=== PATIENT | female | born 1960 | race Caucasian/White ===

== ENCOUNTER 2018-06-20 07:16 | Outpatient (CLI) | payer OTHER, SELFPAY ==
[2018-06-20 08:06] LABS: Cholesterol 244 mg/dL (50-200); HDL Cholesterol 40 mg/dL (40-60); LDL CHOLESTEROL 142 mg/dL (<100); Triglyceride 321 mg/dL (30-150)
== END 2018-06-20 07:36 ==
PROVIDERS: PCP Nurse Practitioner; Visit Provider Nurse Practitioner
DX: E78.5 Hyperlipidemia, unspecified (principal); E78.1 Pure hyperglyceridemia
CPT/HCPCS: 36415; 80061; 83721

== ENCOUNTER 2018-07-13 15:03 | Outpatient (CLI) | payer OTHER, SELFPAY ==
--- NOTE | 2018-07-13 12:01 | DI.RAD_ITS ---
SYMPTOMS/DIAGNOSIS: PAIN SWELLING, S/P TWISTING, M25.562, M25.462 LEFT KNEE: The joint spaces are well maintained. No fracture or joint effusion is seen. IMPRESSION: Negative left knee.
== END 2018-07-13 15:23 ==
PROVIDERS: PCP Nurse Practitioner; Visit Provider Nurse Practitioner Family
DX: M25.562 Pain in left knee (principal); M25.462 Effusion, left knee
CPT/HCPCS: 73564

== ENCOUNTER 2018-07-19 00:41 | Outpatient (CLI) | payer OTHER, SELFPAY ==
--- NOTE | 2018-07-19 07:30 | DI.MAMMO_ITS ---
SYMPTOM/DIAGNOSIS: SCREENING, Z12.31 MAMMOGRAMS: Mammograms were interpreted according to the usual protocol including computer analysis with CAD system, tomosynthesis and C view imaging. Comparison with prior examinations. Breast density B. No suspicious masses or microcalcifications are seen. There is no definite evidence of malignancy. IMPRESSION: Negative mammogram. Routine screening is recommended. Category I. MQSA ASSESSMENT OF FINDINGS: Negative. Category 1. Patient will receive a letter notifying them of these results. BI-RADS category B. There are scattered areas of fibroglandular density.
== END 2018-07-19 01:01 ==
PROVIDERS: PCP Nurse Practitioner; Visit Provider Nurse Practitioner
DX: Z12.31 Encounter for screening mammogram for malignant neoplasm of breast (principal)
CPT/HCPCS: 77063; 77067

== ENCOUNTER 2018-10-27 08:01 | Outpatient (REF) | payer OTHER, SELFPAY ==
[2018-10-28 11:34] LABS: Campylobacter PCR SEE COMMENTS; Salmonella PCR SEE COMMENTS; Shiga Toxin PCR SEE COMMENTS; Shigella/Enteroinvasive Ecoli SEE COMMENTS
== END 2018-10-27 08:21 ==
LOC: LBN 08:01
PROVIDERS: PCP Nurse Practitioner; Visit Provider Nurse Practitioner
DX: K52.9 Noninfective gastroenteritis and colitis, unspecified (principal)
CPT/HCPCS: 87505; 83630; 87177; 87324

== ENCOUNTER 2019-05-09 07:50 | Outpatient (CLI) | payer OTHER, SELFPAY ==
[2019-05-09 08:38] LABS: Absolute Basophil Count 0.04 k/cumm (0.0-0.2); Absolute Eosinophil Count 0.19 k/cumm (0.0-0.7); Absolute Lymphocyte Count 1.26 k/cumm (1.2-3.4); Absolute Neutrophil Count 2.25 k/cumm (1.2-6.7); Eosinophils % 4.6; HCT 41.8 % (36.0-46.0); HGB 13.9 g/dL (12.0-15.5); Lymphocytes % 30.4; Mean Corp. HGB Concentration 33.3 g/dL (32.0-36.0); Mean Corpuscular Hemoglobin 28.5 pg (27.0-33.0); Mean Corpuscular Volume 85.7 fL (80-95); Mean Platelet Volume 10.2 fL (8.0-11.0); Monocytes % 9.7; Neutrophils % 54.3; Platelet Count 274 x1000/uL (130-400); RBC 4.88 m/cumm (4.00-5.20); RBC Distribution Width 13.1 % (11.7-14.6); White Blood Cell Count 4.14 k/cumm (4.4-10.8)
[2019-05-09 10:45] LABS: ALT 46 U/L (14-59); AST 21 U/L (15-37); Albumin 3.9 g/dL (3.4-5.0); Alkaline Phosphatase 72 U/L (46-116); Anion Gap 11.2 mmol/L (3-11); BUN 21 mg/dL (7-18); Bilirubin, Total 0.4 mg/dL (0.2-1.0); CO2 26.8 mmol/L (21.0-32.0); CREATININE 1.04 mg/dL (0.55-1.02); Calcium 9.5 mg/dL (8.5-10.1); Chloride 101 mmol/L (98-107); Cholesterol 263 mg/dL (50-200); Estimated GFR 53.87 (mL/min/1.73m2); Ferritin 53 ng/mL (8-388); Glucose 151 mg/dL (70-100); HDL Cholesterol 34 mg/dL (40-60); Potassium 4.6 mmol/L (3.5-5.1); Sodium 139 mmol/L (136-145); Total Protein 7.4 g/dL (6.4-8.2); Triglyceride 401 mg/dL (30-150); Vitamin B12 583 pg/mL (193-986)
[2019-05-09 11:02] LABS: LDL CHOLESTEROL 138 mg/dL (<100)
[2019-05-09 11:21] LABS: C-Reactive Protein 0.07 mg/dL (0.0-0.3)
[2019-05-10 11:26] LABS: IgA 133 mg/dL (85-499); Interpretation SEE COMMENTS; Tissue Transglutaminase IgA <1.2 U/mL (<4.0)
[2019-05-11 06:15] LABS: Vitamin D 25 Total 33.8 ng/ml (30-100)
== END 2019-05-09 08:10 ==
PROVIDERS: PCP Nurse Practitioner; Visit Provider Internal Medicine Sleep Medicine
DX: E78.5 Hyperlipidemia, unspecified (principal); E55.9 Vitamin D deficiency, unspecified; K58.0 Irritable bowel syndrome with diarrhea; R53.83 Other fatigue; M25.50 Pain in unspecified joint
CPT/HCPCS: 36415; 80053; 80061; 82306; 82784; 83516; 83721; 85027; 82607; 82728; 85025; 86140

== ENCOUNTER 2019-12-29 03:53 | Outpatient (CLI) | payer OTHER, SELFPAY ==
[2019-12-29 09:55] LABS: Hemoglobin A1C 5.8 % (3.8-5.6)
[2019-12-29 12:29] LABS: ALT 31 U/L (14-59); AST 18 U/L (15-37); Albumin 4.3 g/dL (3.4-5.0); Alkaline Phosphatase 69 U/L (46-116); Anion Gap 12.1 mmol/L (3-11); BUN 26 mg/dL (7-18); Bilirubin, Total 0.4 mg/dL (0.2-1.0); CO2 24.9 mmol/L (21.0-32.0); CREATININE 0.92 mg/dL (0.55-1.02); Calcium 9.5 mg/dL (8.5-10.1); Calculated LDL 172 mg/dL (<100); Chloride 103 mmol/L (98-107); Cholesterol 250 mg/dL (<200); Glucose 99 mg/dL (74-106); HDL Cholesterol 42 mg/dL (40-60); Potassium 4.2 mmol/L (3.5-5.1); Sodium 140 mmol/L (136-145); Total Protein 7.6 g/dL (6.4-8.2); Triglyceride 182 mg/dL (<150)
== END 2019-12-29 04:13 ==
PROVIDERS: PCP Nurse Practitioner; Visit Provider Nurse Practitioner
DX: R73.03 Prediabetes (principal); E78.5 Hyperlipidemia, unspecified
CPT/HCPCS: 36415; 80053; 80061; 83036

== ENCOUNTER 2020-05-14 03:26 | Outpatient (CLI) | payer OTHER, SELFPAY ==
[2020-05-14 09:08] LABS: Calculated LDL 154 mg/dL (<100); Cholesterol 269 mg/dL (<200); HDL Cholesterol 42 mg/dL (40-60); Triglyceride 369 mg/dL (<150)
== END 2020-05-14 03:46 ==
PROVIDERS: PCP Student in an Organized Health Care Education/Training Program; Visit Provider Nurse Practitioner
DX: E78.5 Hyperlipidemia, unspecified (principal)
CPT/HCPCS: 36415; 80061

== ENCOUNTER 2020-07-01 02:51 | Outpatient (REF) | payer OTHER, SELFPAY ==
[2020-07-01 19:55] LABS: COVID-19 RT-PCR UVMMC Result Negative (Negative)
== END 2020-07-01 03:11 ==
LOC: LBO 02:51
PROVIDERS: PCP Student in an Organized Health Care Education/Training Program; Visit Provider Nurse Practitioner Family
DX: Z11.59 Encounter for screening for other viral diseases (principal)
CPT/HCPCS: U0003

== ENCOUNTER 2020-07-24 04:47 | Outpatient (CLI) | payer OTHER, SELFPAY ==
[2020-07-24 10:10] LABS: ALT 32 U/L (14-59); AST 16 U/L (15-37); Albumin 4.2 g/dL (3.4-5.0); Alkaline Phosphatase 71 U/L (46-116); Anion Gap 10.7 mmol/L (3-11); BUN 21 mg/dL (7-18); Bilirubin, Total 0.6 mg/dL (0.2-1.0); CO2 27.3 mmol/L (21.0-32.0); CREATININE 1.01 mg/dL (0.55-1.02); Calcium 9.7 mg/dL (8.5-10.1); Chloride 102 mmol/L (98-107); Estimated GFR 55.54 (mL/min/1.73m2); Glucose 114 mg/dL (74-106); Potassium 4.6 mmol/L (3.5-5.1); Sodium 140 mmol/L (136-145); Total Protein 7.7 g/dL (6.4-8.2)
== END 2020-07-24 05:07 ==
PROVIDERS: PCP Student in an Organized Health Care Education/Training Program; Visit Provider Student in an Organized Health Care Education/Training Program
DX: E78.5 Hyperlipidemia, unspecified (principal); E86.0 Dehydration; R73.03 Prediabetes; K58.0 Irritable bowel syndrome with diarrhea
CPT/HCPCS: 36415; 80053; 83036

== ENCOUNTER 2020-10-21 10:13 | Outpatient (REF) | payer OTHER, SELFPAY ==
--- NOTE | 2020-10-21 09:30 | PAPFT_PTH ---
PATIENT: Keira Montilla LOC: [facility] U#:[id number] AGE/SX: 60/F ROOM: RE10/21/[address]: CATHERINE Sanchez : 1960 BED: DIS: 10/21/2020 SPEC #: [id number] RECD: 10/21/20 12:48 STATUS: RUTHYChel REQ #: [id number] PALOMA: 10/21/20 09:[address]: Veronique Eugene DEPT: [facility] Cytology RECD BY: Ana Paula Mattson ENTERED: 10/21/20 12:49 SP TYPE: PAPFT OTHR DR: Viri Woodward, Tissues: 1 - CX/ENDOCX FOR PAP SMEARS Procedures: PAP THIN PREP/UVM Screening HPV DNA PROBE Comments: [id number]
== END 2020-10-21 10:14 | disposition home or self-care (01) ==
LOC: LBN 10:13
PROVIDERS: PCP Student in an Organized Health Care Education/Training Program; Visit Provider Nurse Practitioner Family
DX: Z12.4 Encounter for screening for malignant neoplasm of cervix (principal); Z11.51 Encounter for screening for human papillomavirus (HPV)
CPT/HCPCS: 88142; 87624

== ENCOUNTER 2020-10-29 01:11 | Outpatient (CLI) | payer OTHER, SELFPAY ==
--- NOTE | 2020-10-29 07:30 | DI.MAMMO_ITS ---
EXAM: MG MAMMO SCREENING CLINICAL HISTORY: screening TECHNIQUE: Mammograms were interpreted according to the usual protocol including computer analysis w [employer] CAD system, tomosynthesis and C-view imaging. COMPARISON: FINDINGS: The breasts are of moderate density with fairly symmetrical distribution of fibroglandular tissue. N o dominant mass or clumped microcalcification is identified in either breast. The current examinatio n is compared with previous examinations including July 2018 and there has been no gross interval change in appearance in comparison with the prior studies. IMPRESSION: No specific evidence of malignancy at this time. Routine screening examinations are suggested at yea rly intervals in this age group according to the ACS ACR guidelines. BI-RADS Category 1 - Negative Breast Density - Category B - Scattered areas of fibroglandular density
== END 2020-10-29 01:31 ==
PROVIDERS: PCP Student in an Organized Health Care Education/Training Program; Visit Provider Nurse Practitioner Family
DX: Z12.31 Encounter for screening mammogram for malignant neoplasm of breast (principal)
CPT/HCPCS: 77063; 77067

== ENCOUNTER 2021-06-13 09:49 | Outpatient (CLI) | payer OTHER, SELFPAY ==
[2021-06-14 02:11] LABS: COVID-19 RT-PCR UVMMC Result Negative (Negative)
== END 2021-06-13 09:50 | disposition home or self-care (01) ==
LOC: LBO 09:49
PROVIDERS: PCP Student in an Organized Health Care Education/Training Program; Visit Provider Nurse Practitioner Family
DX: Z20.822 Contact with and (suspected) exposure to COVID-19 (principal)
CPT/HCPCS: U0003

== ENCOUNTER 2021-06-27 03:00 | Outpatient (CLI) | payer OTHER, SELFPAY ==
[2021-06-28 01:37] LABS: COVID-19 RT-PCR UVMMC Result Negative (Negative)
== END 2021-06-27 03:01 | disposition home or self-care (01) ==
PROVIDERS: PCP Student in an Organized Health Care Education/Training Program; Visit Provider Nurse Practitioner Family
DX: Z20.822 Contact with and (suspected) exposure to COVID-19 (principal)
CPT/HCPCS: U0003

== ENCOUNTER 2021-09-25 03:52 | Outpatient (CLI) | payer OTHER, SELFPAY ==
[2021-09-25 09:07] LABS: Iron 41 ug/dL (50-170); Total Iron Binding Capacity 330 ug/dL (250-450); Transferrin Sat 12 % (15-50)
[2021-09-25 09:30] LABS: BUN 22 mg/dL (7-18); CREATININE 0.9 mg/dL (0.55-1.02); Calcium 8.8 mg/dL (8.5-10.1); Calculated LDL 141 mg/dL (<100); Chloride 103 mmol/L (98-107); Cholesterol 219 mg/dL (<200); Ferritin 123 ng/mL (8-252); Glucose 136 mg/dL (74-106); HDL Cholesterol 37 mg/dL (40-60); Potassium 4.7 mmol/L (3.5-5.1); Sodium 139 mmol/L (136-145); TSH (W/Ref FT4) 1.39 uIU/mL (0.36-3.74); Triglyceride 208 mg/dL (<150); Vitamin B12 456 pg/mL (193-986); Vitamin D 25 Total 29.3 ng/mL (30-100)
== END 2021-09-25 03:53 | disposition home or self-care (01) ==
LOC: LBO 03:52
PROVIDERS: PCP Student in an Organized Health Care Education/Training Program; Visit Provider Student in an Organized Health Care Education/Training Program
DX: G25.81 Restless legs syndrome (principal); K58.0 Irritable bowel syndrome with diarrhea; K90.9 Intestinal malabsorption, unspecified; R73.03 Prediabetes; Z91.89 Other specified personal risk factors, not elsewhere classified; G62.9 Polyneuropathy, unspecified; K52.831 Collagenous colitis; Z13.220 Encounter for screening for lipoid disorders; R53.83 Other fatigue
CPT/HCPCS: 36415; 80048; 80061; 82306; 82607; 82728; 82746; 83540; 83550; 84443

== ENCOUNTER 2021-10-17 02:51 | Outpatient (CLI) | payer OTHER, SELFPAY ==
[2021-10-17 15:48] LABS: HCT 40.5 % (36.0-46.0); HGB 13.3 g/dL (11.2-15.7); MCH 28.9 pg (27.0-33.0); MCHC 32.8 % (32.0-36.0); MPV 10.2 fL (8.0-11.0); Platelet Count 219 10^3/uL (130-400); RDW 12.7 % (11.7-14.6); RDW-SD 41.2 fL; WBC 6.37 10^3/uL (4.4-10.8)
[2021-10-17 16:51] LABS: Total Iron Binding Capacity 334 ug/dL (250-450)
== END 2021-10-17 02:52 | disposition home or self-care (01) ==
LOC: LBO 02:51
PROVIDERS: PCP Student in an Organized Health Care Education/Training Program; Visit Provider Student in an Organized Health Care Education/Training Program
DX: G62.9 Polyneuropathy, unspecified (principal); K90.9 Intestinal malabsorption, unspecified; G25.81 Restless legs syndrome; G47.33 Obstructive sleep apnea (adult) (pediatric); R53.83 Other fatigue
CPT/HCPCS: 36415; 85027; 83550

== ENCOUNTER 2021-11-04 04:40 | Outpatient (RCR) | payer OTHER, SELFPAY ==
[2021-10-28] MEDS: IRON SUCROSE COMPLEX 200 MG in Normal Saline 100 ML 440 MG IVPB (08:19)
[2021-10-28] MEDS: Normal Saline Flush 10 ML SYR IVP (08:20)
[2021-11-04] MEDS: Normal Saline Flush 10 ML SYR IVP (08:31)
[2021-11-04] MEDS: IRON SUCROSE COMPLEX 200 MG in Normal Saline 100 ML 440 MG IVPB (08:31)
== END 2021-11-08 23:59 | disposition home or self-care (01) ==
LOC: INF 04:40
PROVIDERS: PCP Student in an Organized Health Care Education/Training Program; Visit Provider Student in an Organized Health Care Education/Training Program
DX: G25.81 Restless legs syndrome (principal)
CPT/HCPCS: 96365; J1756

== ENCOUNTER 2021-11-11 01:33 | Outpatient (RCR) | payer OTHER, SELFPAY ==
[2021-11-11] MEDS: IRON SUCROSE COMPLEX 200 MG in Normal Saline 100 ML 440 MG IVPB (08:25)
[2021-11-11] MEDS: Normal Saline Flush 10 ML SYR IVP (08:59)
== END 2021-12-09 23:59 | disposition home or self-care (01) ==
LOC: INF 01:33
PROVIDERS: PCP Student in an Organized Health Care Education/Training Program; Visit Provider Student in an Organized Health Care Education/Training Program
DX: G25.81 Restless legs syndrome (principal); E61.1 Iron deficiency; R53.83 Other fatigue
CPT/HCPCS: 96365; J1756

== ENCOUNTER → 2021-12-17 08:32 | Outpatient (CLI) | payer OTHER, SELFPAY ==
--- NOTE | 2021-12-17 08:00 | DI.MAMMO_ITS ---
Exam(s) MAMMO SCREENING EXAM: MAMMO SCREENING CLINICAL HISTORY: screening. TECHNIQUE: Bilateral full field digital CC and MLO mammographic images were obtained with 3D tomosyn thesis and utilizing computer aided detection (CAD). COMPARISON: Prior mammograms were reviewed, the most recent being October 2020. FINDINGS: There has been no significant change in the appearance and distribution of the fibroglandular tissue. There are no new spiculated masses nor malignant appearing microcalcification groups. There is no significant architectural distortion nor skin thickening-retraction. IMPRESSION: No radiographic evidence of malignancy. BI-RADS Category 1 - Negative Breast Density - Category B - Scattered areas of fibroglandular density Breast density Category C or D implies that the patient has dense breast tissue. Dense breast tissue can make it harder to find cancer on a mammogram. Dense breast tissue is also associated with an incr eased risk of breast cancer. This information about the result of the mammogram report was provided to the patient to raise their awareness. Use this report when you speak with the patient about their risks for breast cancer, which includes their family history. At that time, you may recommend additional screening tests (Ultrasoun d or MRI) as these tests may add significant information. A negative radiographic report should not delay biopsy if a dominant or clinically suspicious mass is present. Up to ten percent of cancers are not identified on mammography. A negative report may reinforce clinical impression. Adenosis and dense breasts may obscure an underlying neoplasm. False positive reports average 6 to 10%. Patient will receive a letter notifying them of these results.
== END ==
PROVIDERS: PCP Student in an Organized Health Care Education/Training Program; Visit Provider Nurse Practitioner Family
DX: Z12.31 Encounter for screening mammogram for malignant neoplasm of breast (principal)
CPT/HCPCS: 77063; 77067

== ENCOUNTER 2021-12-18 02:13 | Outpatient (CLI) | payer OTHER, SELFPAY ==
[2021-12-18 11:50] LABS: HCT 42.8 % (36.0-46.0); HGB 14.3 g/dL (11.2-15.7); MCH 29.2 pg (27.0-33.0); MCHC 33.4 % (32.0-36.0); MCV 87 fL (80-95); MPV 10.3 fL (8.0-11.0); Platelet Count 210 10^3/uL (130-400); RDW 12.4 % (11.7-14.6); RDW-SD 39.8 fL; WBC 5.14 10^3/uL (4.4-10.8)
[2021-12-18 12:41] LABS: Iron 52 ug/dL (50-170); Total Iron Binding Capacity 344 ug/dL (250-450); Transferrin Sat 15 % (15-50)
[2021-12-18 12:45] LABS: Ferritin 300 ng/mL (8-252)
== END 2021-12-18 02:14 | disposition home or self-care (01) ==
LOC: LBO 02:13
PROVIDERS: PCP Student in an Organized Health Care Education/Training Program; Visit Provider Student in an Organized Health Care Education/Training Program
DX: E61.1 Iron deficiency (principal); G25.81 Restless legs syndrome
CPT/HCPCS: 36415; 85027; 82728; 83540; 83550

== ENCOUNTER 2022-06-23 02:57 | Outpatient (CLI) | payer OTHER, SELFPAY ==
[2022-06-23 08:22] LABS: Iron 86 ug/dL (50-170); Total Iron Binding Capacity 329 ug/dL (250-450); Transferrin Sat 26 % (15-50)
== END 2022-06-23 02:58 | disposition home or self-care (01) ==
PROVIDERS: PCP Student in an Organized Health Care Education/Training Program; Visit Provider Student in an Organized Health Care Education/Training Program
DX: E61.1 Iron deficiency (principal); G25.81 Restless legs syndrome
CPT/HCPCS: 36415; 83540; 83550

== ENCOUNTER 2022-06-26 11:23 | Outpatient (CLI) | payer OTHER, SELFPAY ==
--- NOTE | 2022-06-26 11:15 | RT.EKG_ITS ---
APPROVED REPORT Exam: Resting ECG Reason for Exam: palpitations Patient Location: O HR:67 bpm ECG Measurements Heart Rate 67 AXIS DE 189 P 9 QRSd 104 QRS 43 QT 410 T 57 QTc 433 Conclusion Sinus rhythm...normal P axis, V-rate 50- [address] elevation, inferior leads...ST >0.06mV, II III aVF
== END 2022-06-26 11:24 | disposition home or self-care (01) ==
LOC: DI.KIM 11:24
PROVIDERS: PCP Student in an Organized Health Care Education/Training Program; Visit Provider Student in an Organized Health Care Education/Training Program
DX: R00.2 Palpitations (principal)
CPT/HCPCS: 93010

== ENCOUNTER 2022-07-14 08:53 | Outpatient (CLI) | payer OTHER, SELFPAY | END 2022-07-14 08:54 | disposition home or self-care (01) | LOC: CARDOPNVT 08:53 | PROVIDERS: PCP Student in an Organized Health Care Education/Training Program; Visit Provider Student in an Organized Health Care Education/Training Program | DX: R00.2 Palpitations (principal) | CPT/HCPCS: 93246 ==

== ENCOUNTER 2022-08-13 07:52 | Outpatient (CLI) | payer OTHER, SELFPAY ==
--- NOTE | 2022-08-13 08:54 | W.CARDEVENT ---
Date of service: 08/13/22 Time of Service: 08:54 Cardiac Event Recorder Referring Provider:: Viri Woodward Indications:: Palpitations Cardiac Event Note: This is a 14-day cardiac event monitor Rhythm throughout was sinus with an average heart rate of 69. Minimum was 49, maximum 139 There were occasional ventricular ectopic beats There were rare atrial premature beats. There were several self-limited atrial runs There was no atrial fibrillation, no high-grade AV block, no pauses greater than 3 seconds Multiple patient's symptoms were reported. The majority of these corresponded to sinus rhythm, rarely to sinus tachycardia. Sometimes reported symptoms of fast heartbeat corresponded to sinus bradycardia. There was no clear correlation of symptoms to any dysrhythmia
== END 2022-08-13 07:53 | disposition home or self-care (01) ==
LOC: CARDOPNVT 07:52
PROVIDERS: PCP Student in an Organized Health Care Education/Training Program; Visit Provider Internal Medicine Cardiovascular Disease
DX: R00.2 Palpitations (principal)

== ENCOUNTER 2022-11-09 04:38 | Outpatient (CLI) | payer OTHER, SELFPAY ==
[2022-11-09 07:45] LABS: HCT 41.2 % (36.0-46.0); HGB 14.1 g/dL (11.2-15.7); MCH 29.3 pg (27.0-33.0); MCHC 34.2 % (32.0-36.0); MCV 86 fL (80-95); MPV 9.8 fL (8.0-11.0); Platelet Count 204 10^3/uL (130-400); RBC 4.81 10^6/uL (3.93-5.22); RDW 12.2 % (11.7-14.6); RDW-SD 38.3 fL; WBC 4.56 10^3/uL (4.4-10.8)
[2022-11-09 08:28] LABS: Iron 125 ug/dL (50-170); Total Iron Binding Capacity 347 ug/dL (250-450); Transferrin Sat 36 % (15-50)
[2022-11-09 08:46] LABS: ALT 61 U/L (14-59); AST 32 U/L (15-37); Albumin 3.8 g/dL (3.4-5.0); Alkaline Phosphatase 71 U/L (46-116); Anion Gap 8.9 mmol/L (3-11); BUN 20 mg/dL (7-18); Bilirubin, Total 0.8 mg/dL (0.2-1.0); CO2 27.1 mmol/L (21.0-32.0); Calcium 9.1 mg/dL (8.5-10.1); Chloride 102 mmol/L (98-107); Cholesterol 225 mg/dL (<200); Estimated GFR 62.91 (mL/min/1.73m2); Glucose 129 mg/dL (74-106); HDL Cholesterol 40 mg/dL (40-60); Potassium 4.2 mmol/L (3.5-5.1); Sodium 138 mmol/L (136-145); Total Protein 7.4 g/dL (6.4-8.2); Triglyceride 470 mg/dL (<150)
[2022-11-09 08:53] LABS: Vitamin D 25 Total 28.2 ng/mL (30-100)
[2022-11-09 09:00] LABS: LDL CHOLESTEROL 102 mg/dL (<100)
[2022-11-12 16:40] LABS: Lab Add On Test DONE
[2022-11-12 16:56] LABS: Magnesium 2.1 mg/dL (1.8-2.4)
[2022-11-12 17:12] LABS: Hemoglobin A1C 6.2 % (<5.7)
== END 2022-11-09 04:39 | disposition home or self-care (01) ==
LOC: LBO 04:39
PROVIDERS: PCP Student in an Organized Health Care Education/Training Program; Visit Provider Student in an Organized Health Care Education/Training Program
DX: Z13.220 Encounter for screening for lipoid disorders (principal); E55.9 Vitamin D deficiency, unspecified; E61.1 Iron deficiency; G25.81 Restless legs syndrome; K31.9 Disease of stomach and duodenum, unspecified; R00.2 Palpitations; E86.0 Dehydration; E87.8 Other disorders of electrolyte and fluid balance, not elsewhere classified; F41.9 Anxiety disorder, unspecified
CPT/HCPCS: 36415; 80053; 80061; 82306; 83721; 85027; 83036; 83540; 83550; 83735; 84443

== ENCOUNTER 2022-12-23 02:30 | Outpatient (CLI) | payer OTHER, SELFPAY | END 2022-12-23 02:50 | LOC: DI 02:31 | PROVIDERS: PCP Student in an Organized Health Care Education/Training Program; Visit Provider Student in an Organized Health Care Education/Training Program | DX: Z12.31 Encounter for screening mammogram for malignant neoplasm of breast (principal) | CPT/HCPCS: 77063; 77067 ==

== ENCOUNTER 2022-12-25 00:20 | Outpatient (CLI) | payer OTHER, SELFPAY ==
--- NOTE | 2022-12-25 08:00 | DI.DEXA_ITS ---
Exam(s) XR DEXA BONE DENSITY W/WO ROSITA EXAM: XR DEXA BONE DENSITY W/WO ROSITA CLINICAL HISTORY: eval bone density,screening for osteoporosis in postmenopausal woman,z78.0 TECHNIQUE: Routine DEXA evaluation of the lumbar spine, hip, or forearm. COMPARISON: No exams were available for comparison FINDINGS: Performed on a Hologic unit. Lateral image: No compression fracture evident. Lumbar Spine total T-score: -2.0 Hip total T-score:-0.5 Independent reading at the level of the femoral neck yields T-score of -1.2 Forearm total T-score: -1.0 IMPRESSION: Bone mineral density measures in the osteopenia range. Fracture risk is moderate. Note: Any spine fracture indicates 5x risk for subsequent spine fracture and 2x risk for subsequent h ip fracture. World Health Organization criteria for BMD interpretation classify patients: Normal...... T- Score at or above -1.0 Osteopenic... T- Score between -1.0 and -2.5 Osteoporosis... T-Score at or below -2.5
== END 2022-12-25 00:40 ==
LOC: DI 00:20
PROVIDERS: PCP Student in an Organized Health Care Education/Training Program; Visit Provider Student in an Organized Health Care Education/Training Program
DX: Z78.0 Asymptomatic menopausal state; Z13.820 Encounter for screening for osteoporosis; M85.89 Other specified disorders of bone density and structure, multiple sites
CPT/HCPCS: 77080

== ENCOUNTER 2024-02-08 10:46 | Day surgery (SDC) | payer OTHER, SELFPAY ==
[2024-02-08] VITALS (40 sets, daily range): BP systolic 134–211; BP diastolic 68–175; PULSE 55–82; RESP 10–23; TEMP 36.2–36.5; O2SAT 82–99; BMI 31.0
--- NOTE | 2024-02-08 10:47 | PDOC.DSDIS_ITS ---
Date of service: 02/08/24 Time of Service: 11:38 Discharge Plan Disposition Patient Disposition: Home Condition: Good Discharge Details Reason For Visit: (L) distal radius fx Attending Provider: Justen Du Primary Care Provider: Yadi,[facility] Home Meds and New Rx's Prescriptions: New tramadol 50 mg tablet 50 mg PO Q6H PRN (Reason: severe postoperative pain) Qty: 10 0RF Rx Instructions: Take one tablet up to every 6 hours as needed for severe pain acetaminophen 500 mg tablet 1,000 mg PO Q8H PRN Qty: 90 0RF Rx Instructions: Take two tablets up to every 8 hours as needed for pain ibuprofen 600 mg tablet 600 mg PO TID PRN (Reason: pain) Qty: 60 0RF Continued ICaps AREDS [id number] pcdj-xk-vbym capsule 1 cap PO DAILY turmeric root extract 500 mg capsule 500 mg PO DAILY ferrous sulfate [Feosol] 325 mg (65 mg iron) tablet 325 mg PO Q OTHER DAY lorazepam [Ativan] 1 mg tablet 0.5 mg PO DAILY MDD 1mg PRN (Reason: severe anxiety, panic) Qty: 20 1RF Multivitamin/Iron/Folic Acid [Centrum Adults Tablet] 1 EACH tablet 1 ea PO omega 3-wnz-unj-fish oil [Fish Oil] 360-1,200 mg capsule,delayed release(DR/EC) 2 cap PO DAILY cholecalciferol (vitamin D3) 50 mcg (2,000 unit) capsule 4,000 unit PO DAILY Patient Comments: note dated 01/09/19 [facility] hydroxyzine HCl 50 mg tablet 25 mg PO Q6H PRN (Reason: nausea, anxiety) Qty: 120 1RF Rx Instructions: Limit # days in use when on Escitalopram pravastatin 10 mg tablet 10 mg PO QHS Qty: 90 3RF Rx Instructions: Continue w/ low dose duloxetine 60 mg capsule,delayed release(DR/EC) 60 mg PO DAILY Discontinued naproxen sodium [Aleve] 220 mg capsule 220 mg PO ONCE Discharge Instructions Additional Instructions: Wrist Fracture Fixation Discharge Instructions Activity: You should keep the hand/wrist elevated as much as possible for the first few days. You may use the other fingers as tolerated but avoid trying to do too much too soon. You may perform light activities with the splint in p lace. Dressing/Cast: Your splint should stay in place at all times. Do NOT get it wet. You may loosen the BART wrap if you feel it is too tight and then rewrap more loosely. Medications: - You should take Tylenol and Ibuprofen for baseline pain control. - You have been prescribed a stronger pain medication, Tramadol, for breakthrough pain. - You may apply ice over the wrist, just double bag so it doesn't get wet. Follow-up: 10-14 days Referrals: Justen Du MD [ [facility] STAFF PHYSICIAN] - Equipment/Supplies: Splint Activity:: Elevate Remove Dressings/Wound Care:: Do Not Remove Shower/Bathe:: Cover Diet:: As Tolerated Discharge Orders Discharge Orders: Discharge Order (Routine); Ordered 02/08/24 Ordered By: Renetta Lovelace
--- NOTE | 2024-02-08 11:04 | W.ANESPRE ---
General Info Date of Service Date Performed: 02/08/24 Height: 5 ft 7 in Weight: 89.811 kg Body Mass Index (BMI): 31.0 Surgical Procedure: Operation Date: 02/08/24 14:40 Proposed Procedure Side Surgeon p Wrist ORIF Distal Radius Left Justen Du MD Meds Allergies and Home Medications Allergies Allergy/AdvReac Type Severity Reaction Status Date / Time oxycodone terephthalate Allergy Unknown unknown Verified 02/08/24 11:17 (From Percodan) oxycodone HCl (From Percocet) AdvReac Intermediate Nausea Verified 02/08/24 11:17 Home Medication ?Medication ?Instructions ?Recorded Multivitamin/Iron/Folic Acid 1 ea PO 05/18/17 [Centrum Adults Tablet] omega-3 360 ih-rau-zmu-fish oil 2 cap PO DAILY 06/22/18 1,200 mg capsule,delayed release (Fish Oil) turmeric root extract 500 mg 500 mg PO DAILY 05/24/19 capsule vitamins A,C,J-meut-wmeedl 4,296 1 cap PO DAILY 05/24/19 mcg-226 mg-90 mg capsule (ICaps AREDS) cholecalciferol (vitamin D3) 50 4,000 unit PO DAILY 12/10/20 mcg (2,000 unit) capsule ferrous sulfate 325 mg (65 mg 325 mg PO Q OTHER DAY 06/26/22 iron) tablet (Feosol) lorazepam 1 mg tablet (Ativan) 0.5 mg (1/2 x 1 mg) PO DAILY PRN 11/13/22 severe anxiety, panic #20 tabs hydroxyzine HCl 50 mg tablet 25 mg (1/2 x 50 mg) PO Q6H PRN 01/31/23 nausea, anxiety #120 tabs pravastatin 10 mg tablet 10 mg PO QHS #90 tabs 02/09/23 duloxetine 60 mg capsule,delayed 60 mg PO DAILY Anxiety 02/07/24 release acetaminophen 500 mg tablet 1,000 mg (2 x 500 mg) PO Q8H PRN 02/08/24 pain #90 tabs ibuprofen 600 mg tablet 600 mg PO TID PRN pain #60 tabs 02/08/24 tramadol 50 mg tablet 50 mg PO Q6H PRN severe 02/08/24 postoperative pain #10 tabs Current Visit Medications: Current Medications Generic Name Dose Route Start Last Admin Trade Name Zackq PRN Reason Stop Dose Admin Acetaminophen 1,000 mg 02/08/24 06:00 Acetaminophen 500 Mg Tab PO 02/08/24 23:59 PREOP ALEKS Acetaminophen 650 mg 02/08/24 10:49 Acetaminophen 325 Mg Tab PO 03/09/24 10:48 Q4H PRN PRN Celecoxib 400 mg 02/08/24 06:00 Celecoxib 200 Mg Cap PO 02/08/24 23:59 PREOP ALEKS Ringer's Solution 1,000 mls @ 80 mls/hr 02/08/24 06:00 IV 02/08/24 23:59 INFUSION ALEKS Cefazolin Sodium/Dextrose 2 gm in 50 mls @ 100 mls/hr 02/08/24 06:00 Ancef Duplex IVPB 02/08/24 23:59 PREOP ALEKS Tranexamic Acid/Sodium Chloride 1,000 mg in 100 mls @ 600 mls/hr 02/08/24 06:00 IVPB 02/08/24 23:59 PREOP ALEKS IV Miscellaneous Supplies 1 each 02/08/24 06:00 Iv Access IV 02/08/24 23:59 DIRECTED ALEKS Sodium Chloride 0 ml 02/08/24 06:00 Normal Saline Flush 10 Ml Syr IV 02/08/24 23:59 PRN PRN Sodium Chloride 0 ml 02/08/24 06:00 Normal Saline 10 Ml Vial IJ 02/08/24 23:59 DIRECTED PRN Sterile Water 0 ml 02/08/24 06:00 Water,Injection,Sterile 10 Ml Vial IJ 02/08/24 23:59 DIRECTED PRN PFSH Active Problems Active Problems: Problem Status Onset Code Fracture of left distal radius Acute S52.502A Palpitations Acute R00.2 Gastropathy Acute K31.9 Stress due to illness of family member Acute Z63.79 Iron deficiency Acute E61.1 Restless legs Acute 01/09/19 G25.81 Vitamin D deficiency Acute 05/27/17 E55.9 Neuropathy involving both lower extremities Chronic 05/20/21 G57.93 Paresthesias Acute 05/27/17 R20.2 Malabsorption Acute K90.9 Irritable bowel syndrome with diarrhea Acute K58.0 Collagenous colitis Acute K52.831 Generalized anxiety disorder Acute F41.1 Post traumatic stress disorder (PTSD) Chronic F43.10 Osteoarthritis Acute 05/27/17 M19.90 MARC (obstructive sleep apnea) Acute 05/27/17 G47.33 Hyperlipidemia Acute 05/27/17 E78.5 High triglycerides Acute E78.1 Medical History Medical History Family hx-urinary malignancy Bladder Cancer (Mo) Family history of diabetes mellitus in paternal grandmother and father Fam hx-ischem heart disease Fa (cardiomyopathy), Mo Family hx of hypertension Mo Panic disorder [episodic paroxysmal anxiety] Episodes of anxiety becoming panic .. able to self-soothe, but becoming difficult 2' fear .. Hx trauma. Actively working with counseling. 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 NEg x years Postmenopausal bleeding 06/2017 EMBx - benign. Atrophic endometrium. Surgical History Surgical History S/P colonoscopy 01/11/22 collagenous colitis. Next colo due 2030 Tonsillectomy section X 2 Dilation and curettage After miscarriage Tobacco Smoking/Tobacco Use Status: Never Passive smoking exposure: Yes Alcohol Alcohol Intake: former Substance Use Substance use: Never Substance use type: does not use Vital Signs and Lab Results Vital Signs Most Recent Vital Signs in EMR: Temp Pulse Resp BP Pulse Ox 36.2 C L 79 16 191/92 H 98 02/08/24 11:36 02/08/24 11:36 02/08/24 11:36 02/08/24 11:36 02/08/24 11:36 Lab Results Blood Type / Crossmatch: No Data to Display Complete Blood Count: No Data to Display Complete Metabolic Panel: No Data to Display Liver Function Panel: No Data to Display Coagulation Panel: No Data to Display Cardiac Panel: No Data to Display Arterial Blood Gas: No Data to Display Venous Blood Gas: No Data to Display Pancreas Panel: No Data to Display Thyroid Panel: No Data to Display Infectious Disease: No Data to Display Blood Cultures: No Data to Display Toxicology Panel: No Data to Display Imaging and Studies Imaging and Studies Study information below may be from another EMR and interpreted by another provider. Please see original notes in EMR for more complete details. EKG Summary: 07/02: sinus. Other Study Summary:: 09/03 cardiac event recorder: sinus t/o. no clear dysrhythmia. Anesthesia Assessment and Plan Anesthesia History Personal History: No History of Anesthesia Complications Family History: No Family History of Anesthesia Complications Exercise Tolerance Exercise Tolerance: Metabolic Equivalents>4 Cardiac & Pulmonary Exam Cardiac Exam: Normal S1/S2 Heart Sounds Pulmonary Exam: Clear Bilateral Breath Sounds Implantable Cardiac Device Does patient have a Pacemaker or an ICD?: No Airway Exam Known Difficult Airway: No Mallampati Class: 3 Mouth Opening: Normal (> 3cm) Thyromental Distance: Greater than 3 cm Neck Range of Motion: Full ROM Neck Circumference: Normal Teeth Condition: Normal Dentition ASA Classification ASA Score: ASA 2 Emergency Case?: No NPO Status NPO Status: NPO Clears >2 hours, Solids >8 hours Anesthesia Plan Resuscitation Status: Full Code Anesthesia Technique: General Anesthesia Airway Planned: Endotracheal Tube Pain Management: Surgeon and patient request nerve block Monitors Used: Standard Monitors Preoperative Comments:: 63 yo female for wrist ORIF. Sig PMHx: MARC (uses CPAP), anxiety/depression/PTSD, PreDM (6.2), never smoker, former EtOH.
[2024-02-08] MEDS: Celecoxib 200 MG CAP 400 MG PO (11:28)
[2024-02-08] MEDS: Acetaminophen 500 MG TAB 1000 MG PO (11:28)
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
[2024-02-08] MEDS: Lactated Ringers 1,000 ML 80 ML IV (11:45)
[2024-02-08] MEDS: ceFAZolin 2 GM/50 ML BAG IVPB (12:25)
[2024-02-08] MEDS: TRANEXAMIC ACID/SOD. CHL. 1,000 MG/100 ML BAG 600 MG IVPB (12:30)
--- NOTE | 2024-02-08 12:46 | W.ANESNERVE ---
Nerve Block Single Injection Procedure Date and Time Date Performed: 02/08/24 Procedure Start: 12:05 Location Where Procedure Performed Procedure Location: Day Surgery Unit Reason Performed: Postoperative Analgesia Requesting Provider: Justen Du Timeout Performed Timeout Performed: Yes Monitoring Used ECG, Blood Pressure and SpO2 Sterility Sterility: Hand Hygiene, Surgical Cap, Surgical Mask, Sterile Gloves and Chlorhexidine Sedation Given During Procedure Sedation Given (Indicate Dose Given): Versed IV Dose:: 2 mg Patient Mental Status Patient Mental Status: Sedate with meaningful communication Nerve Block 1st Nerve Block: Laterality: Left Block Type: Supraclavicular Ultrasound Image Saved?: Yes Needle / Catheter Used: 100mm SonoPlex II Local Anesthetic Bolus (Indicate Dose Given): Lidocaine used for local infiltration of skin, Bupivacaine 0.5% Dose:: 20 mL and Exparel Dose:: 10 mL Additives (Indicate Dose Given): None Ultrasound: Sterile probe cover and gel used Nerve Stimulator: Primary Nerve Stimulator Technique and No twitch or parasthesia noted < 0.5 mA Paresthesia: Left (down trunk. ) Paresthesia Duration: Transient Procedure Tolerated: No Complications Procedure Outcome: Successful Performed By: Harrison Marte
[2024-02-08] MEDS: Bupivacaine 0.5% Pres-Free W/EPI 30 ML VIAL (13:22)
--- NOTE | 2024-02-08 14:11 | ROE_ITS ---
Date of service: 02/08/24 Time of Service: 13:00 Operative Note Operative Note DATE OF PROCEDURE: 02/08/24 PRE-OP DIAGNOSIS: Left Distal Radius Fracture POST-OP DIAGNOSIS: same PROCEDURE: Open reduction internal fixation of left distal radius fracture, 2 epiphyseal segments SURGEON: Justen Du [employer]: Renetta Lovelace ANESTHESIA TYPE: General LMA/ETT and Primary Nerve Block Refer to Anesthesia Record ESTIMATED BLOOD LOSS: 50 PATHOLOGY: none sent TOURNIQUET TIME: 56 COMPLICATIONS: None Patient was transported to: PACU Patient's condition: stable Indications: Keira is a 63-year-old female who suffered a comminuted, intra-articular distal radius fracture. Given the deformity, displacement, fracture pattern, and effect on daily function, I recommended surgical fixation. I reviewed the risk of the procedure to include bleeding, infection co-pay, stiffness, damage to nerves and vessels, damage to muscles and tendons, malunion, nonunion, hardware prominence, tendon rupture, need for repeat procedures. Despite these risks, the patient elected to proceed. Findings: There is a distal radius fracture which had two epiphyseal fragments. It was reduced and fixed with a Synthes volar locking plate. Procedure Description: Keira was greeted in the preoperative holding area. The correct patient and site was confirmed and marked. The history and physical was updated. The conse nt was reviewed the patient and signed. A regional anesthetic was administered by anesthesia in the day surgery unit. The patient was taken to the operating room and placed in the supine position. All bony problems were well-padded. The left arm was placed onto a radiolucent hand table. A nonsterile tourniquet was placed high up on the arm. Prophylactic antibiotics in the form of cefazolin were administered. The left arm was prepped with ChloraPrep and draped in a standard fashion. A timeout was performed for safe surgery. A standard longitudinal incision was made overlying the flexor carpi radialis tendon starting at the distal wrist crease and moving proximally. The very distal end of the incision was obliquely taken over the palmar wrist crease. The skin was incised sharply. The flexor carpi radialis tendon and its sheath is identified. The sheath was opened. The tendon was moved ulnarly in the floor of the sheath was incised. Blunt dissection the flexor pollicis longus muscle belly and tendon were also made radially exposing the pronator quadratus and the distal radius. The printer quadratus was elevated with an ulnar-based flap. This exposed the volar distal radius and the fracture. A cedeño elevator was used for full exposure of the volar surface of the distal radius. The primary fracture line was exposed. Using a series of elevators, curettes, and knife, the fracture was fully debrided of any fibrous tissue and callus formation. I used a freer elevator to help mobilize the fragments. There is 2 epiphyseal fragments and ulnar and radial aspect. These were largely kept together and not , reduced as 1 whole unit. I then performed a closed reduction. Using gentle traction and fracture manipulation, this reduction was held. Fluoroscopic images were used to confirm adequate reduction. A single 1.5 mm K wire was then placed through the radial styloid into the radial shaft to help hold and assist with reduction. An appropriately sized Synthes volar locking plate was then placed onto the bony surface of the distal radius. Was then held there with a distal radius clamp sandwiching the plate to the distal segment. A single K wire was placed through the distal end. Fluoroscopy was once again used to confirm appropriate positioning of the plate on the distal radius. A single K wire was placed into a hole on the shaft to help hold position but not restrict reduction of the plate. A single nonlocking screw was placed to the distal portion of the plate securing the plate against the bone of the distal radial metaphysis. This purchase was not excellent. Therefore I placed 2 other nonlocking screws. 1 of those did have decent purchase and brought the plate down to the bone. I also used a clamp to help secure the plate to the bone and then, after confirming per position with fluoroscopy, placed locking screws in the distal row. Once again, the plate was evaluated to make sure it was aligned appropriately. The marilyn delfina of the screws within the volar locking plate were filled with locking screws. These were made sure not to penetrate the dorsal cortex. Once these were applied the proximal portion of the plate was further reduced down onto the shaft by placing a 2.7 mm cortex screw in the sliding hole. Fluoroscopy was then used against confirm appropriate reduction. Nonlocking screws were placed within the remaining 2 shaft screw holes. The 2 nonlocking screws which had minimal purchase were removed and treated for locking screws. Final x-rays were obtained which demonstrated adequate reduction and positioning of hardware. The dorsal sunrise view was also obtained to ensure correct sizing of screws. The wound was then thoroughly irrigated. The pronator quadratus was attempted to be reapproximated with a 0 Vicryl but was unable to be brought over the entirety of the plate. The tourniquet was released and there was no notable vascular injury. The fingers were warm and well-perfused. The deep dermal layer was closed with a 2-0 Vicryl. The skin was closed with 4-0 nylon. The wound was dressed with Xeroform, 4 x 4's, web roll. A short arm splint was applied. At the end the case all counts are correct. Patient was transferred back to the PACU in stable condition.
--- NOTE | 2024-02-08 14:30 | DI.RAD_ITS ---
Exam(s) XR WRIST LT LIMITED EXAM: XR WRIST LT LIMITED CLINICAL HISTORY: left distal radius fracture. TECHNIQUE: 2D and realtime digital imaging was performed. COMPARISON: DX XR WRIST 3+ VIEWS-LEFT from 02/01/2024 FINDINGS: Hard copy images show placement of a volar fixation plate along the ventral aspect of the distal radi us. The alignment is anatomic. Please see procedure note for details. Fluoro time: 1 minutes: 37seconds RADIATION DOSE DELIVERED: sophie Barfield=0.61 mGy
[2024-02-08] MEDS: fentaNYL 100 MCG/2 ML VIAL IVP ×2 (14:37→14:53)
--- NOTE | 2024-02-08 14:43 | W.ANESPOSTOP ---
Postoperative Evaluation Date, Time and Location Date Performed: 02/08/24 Time Performed: 14:44 Patient Location: PACU Vital Signs Most Recent Imported Vital Signs: Most Recent Vital Signs Temp Pulse Resp BP Pulse Ox 36.2 C L 56 L 13 144/76 H 85 L 02/08/24 14:29 02/08/24 14:41 02/08/24 14:41 02/08/24 14:41 02/08/24 14:41 Pain Score Most Recent Pain Score: Most Recent Pain Score Pain Level 0 02/08/24 14:29 Assessment Mental Status: Awake (Alert & Oriented to Patient Baseline) Airway and Respiratory Function: Patent airway with normal (patient baseline) respiratory exam Cardiovascular Function: Hemodynamically Stable Hydration Status: Adequately Hydrated Nausea & Vomiting: No Nausea or Vomiting Pain: Pt. Denies Any Pain Peripheral Nerve Block: Regional nerve block not resolved at time of post operative discharge
== END 2024-02-08 16:58 | disposition home or self-care (01) ==
PROVIDERS: Visit Provider Student in an Organized Health Care Education/Training Program
PROC: (CPT 25608; principal; 2024-02-08 14:30)
DX: S52.572A Other intraarticular fracture of lower end of left radius, initial encounter for closed fracture (principal); E78.1 Pure hyperglyceridemia; G47.33 Obstructive sleep apnea (adult) (pediatric); F43.10 Post-traumatic stress disorder, unspecified; S52.612A Displaced fracture of left ulna styloid process, initial encounter for closed fracture; K52.831 Collagenous colitis; G62.9 Polyneuropathy, unspecified; G25.81 Restless legs syndrome; E61.1 Iron deficiency; W19.XXXA Unspecified fall, initial encounter
CPT/HCPCS: 25608; 76000; 76942; 73100; C9290; J0665; J0690; J1100; J1920; J2250; J2405; J2704; J3010

== ENCOUNTER 2024-02-21 15:50 | Outpatient (CLI) | payer OTHER, SELFPAY ==
--- NOTE | 2024-02-21 14:00 | DI.RAD_ITS ---
Exam(s) XR WRIST LT LIMITED EXAM: XR WRIST LT LIMITED CLINICAL HISTORY: L wrist fx. TECHNIQUE: 2D digital imaging was performed. COMPARISON: DX XR WRIST 3+ VIEWS-LEFT from 02/01/2024 CR XR WRIST LT LIMITED from 02/08/2024 FINDINGS: Two views. Again noted is the recently placed for fixation plate in the distal radius and this appears satisfact ory no hardware loosening nor migration. No evidence of osteomyelitis. Fracture site appears satisf actory. There is also fracture again noted at the base of the ulnar styloid. There is no significan t ulnar variance. Scaphoid and scapholunate distance normal. Moderate degenerative changes noted in the 1st carpometacarpal joint. IMPRESSION: As above. Satisfactory appearance DATA REPOSITORY: RADIATION DOSE DELIVERED:
== END 2024-02-21 15:51 | disposition home or self-care (01) ==
LOC: DIORS 15:50
PROVIDERS: Visit Provider Physician Assistant
DX: S52.612D Displaced fracture of left ulna styloid process, subsequent encounter for closed fracture with routine healing (principal); X58.XXXD Exposure to other specified factors, subsequent encounter
CPT/HCPCS: 73100

== ENCOUNTER 2024-04-03 11:39 | Outpatient (CLI) | payer OTHER, SELFPAY ==
--- NOTE | 2024-04-03 10:45 | DI.RAD_ITS ---
Exam(s) XR WRIST LT LIMITED EXAM: XR WRIST LT LIMITED CLINICAL HISTORY: S/P ORIF L DISTAL RADIUS. TECHNIQUE: 2D digital imaging was performed. COMPARISON: CR XR WRIST LT LIMITED from 02/21/2024 FINDINGS: Two views There is stable position of the volar fixation plate and satisfactory appearance at the healing fract ure site in the distal radius. No hardware loosening. No radiographic evidence of osteomyelitis. F ractured ulnar styloid process again noted. Scaphoid appears unremarkable. Scapholunate distance no rmal. No significant ulnar variance IMPRESSION: Stable satisfactory appearance DATA REPOSITORY: RADIATION DOSE DELIVERED:
== END 2024-04-03 11:40 | disposition home or self-care (01) ==
LOC: DIORS 11:39
PROVIDERS: Visit Provider Physician Assistant
DX: S52.592A Other fractures of lower end of left radius, initial encounter for closed fracture (principal); X58.XXXD Exposure to other specified factors, subsequent encounter
CPT/HCPCS: 73100